=== PATIENT | female | born 1950 | race Caucasian/White ===

== ENCOUNTER 2017-06-03 19:01 | Emergency (ER) | payer MEDICARE, OTHER ==
[~2017-06-03] VITALS: Ht 167.6 cm; Wt 48.7 kg
[2017-06-03] MEDS ORDERED: SODIUM CHLORIDE FLUSH 10ML SYR IVF ONE (19:30)
[2017-06-03] MEDS ORDERED: SODIUM CHLORIDE 0.9% 1,000ML IVBOLUS ONE (19:30)
[2017-06-03 19:41] LABS: HEMATOCRIT 41.6 % (34.6-47.8); HEMOGLOBIN 14.1 g/dL (11.7-16.4); WHITE BLOOD COUNT 12.3 x10^3/uL (3.4-10)
[2017-06-03 19:52] LABS: BLOOD UREA NITROGEN 24 mg/dL (7-18)
[2017-06-03] MEDS ORDERED: CHOL-29 PO (20:08)
[2017-06-03] MEDS ORDERED: VENL150C PO (20:08)
[2017-06-03] MEDS ORDERED: OMEG1CAP24 PO (20:08)
[2017-06-03] MEDS ORDERED: CALC1CAP3 PO (20:08)
[2017-06-03] MEDS ORDERED: LEVO75TA5 PO (20:08)
[2017-06-03] MEDS ORDERED: GLUC500T8 PO (20:08)
[2017-06-03] MEDS ORDERED: LEVO25TA4 PO (20:08)
[2017-06-03 21:13] VITALS: BP 117/70
== END 2017-06-03 22:28 | disposition home or self-care (01) ==
LOC: ED 22:18
DX: R31.29 Other microscopic hematuria (principal); E03.9 Hypothyroidism, unspecified
CPT/HCPCS: 36415; 74176; 80048; 81001; 82040; 85025; 96360; 96361; 99285; J7030